=== PATIENT | female | born 2005 | race Caucasian/White ===

== ENCOUNTER 2025-04-01 21:02 | Emergency (ER) | payer OTHER, SELFPAY ==
[2025-04-01 21:07] VITALS: BP 159/91
[2025-04-01 21:52] VITALS: BMI 21.6
[2025-04-01 22:12] LABS: Hematocrit 37.2 % (37.0-47.0); Hemoglobin 12.7 g/dL (12.0-16.0); Mean Corp Hgb Conc. 34.1 g/dL (33.0-37.0); Mean Corpuscular Volume 94.4 fL (81.0-99.0); Nucleated Red Blood Cells % 0 %; Platelet Count 197 10^3/uL (130-400); Red Cell Dist. Width 12.7 % (11.5-14.5)
[2025-04-01 22:35] LABS: ALT (SGPT) < 10 U/L (0-35); AST (SGOT) 15 U/L (14-36); Albumin 5.0 g/dl (3.5-5.0); Alkaline Phosphatase 59 U/L (38-126); Blood Urea Nitrogen 17 mg/dl (7-17); Calcium 9.8 mg/dl (8.4-10.2); Carbon Dioxide 24 mmol/L (22-30); Chloride 106 mmol/L (98-107); Estimated Creatinine Clearance 78 ml/min; Glucose 110 mg/dl (70-99); Potassium 4.3 mmol/L (3.5-5.1); Sodium 139 mmol/L (135-145); Total Protein 7.5 g/dl (6.3-8.2); eGFR > 60.00
--- NOTE | 2025-04-01 23:05 | ED.GENMED ---
History of Present Illness
General
Chief Complaint: Anxiety
Source: patient and family
Exam Limitations: none
Time Seen by Provider: 04/01/25 22:08
Nursing documentation reviewed up to this point in time: agreed with
History of Present Illness
History of Present Illness:
Patient recently diagnosed with depression and started on Lexapro 3 weeks ago, presents to ED secondary to sudden onset of chest palpitations, shortness of breath, nausea, and throat closing sensation, while watching movie this evening with family.
Denies loss of consciousness. However, patient does report feeling lightheaded when her symptoms started. Denies recent illness. Denies recent change in diet. Patient states that she has had similar episodes in the past, including in high school
as well as 2 months ago, but never this severe. There is no family history of depression or anxiety. Patient graduated from college 2 months ago, and is currently looking for work.
Review of Systems
Review of Systems
Allergies reviewed?: Yes
All Other Systems: ROS reviewed and negative except as documented in HPI and ROS
Constitutional: Reports no symptoms
Respiratory: Reports trouble breathing; Denies cough
Cardiac: Reports chest pain and palpitations; Denies diaphoresis or syncope
ABD/GI: Reports no symptoms; Denies vomiting
Musculoskeletal: Reports no symptoms
Skin: Reports no symptoms
Neurological: Reports dizzy; Denies headache
Phy Exam
Physical Exam
Physical Exam:
Physical Exam
General: no apparent distress, not acutely ill. afebrile
Head: nc/at. eomi
Neck: supple. normal range of motion.
Heart: s1/s2 regular rate and rhythm, no murmur.
Lungs: no acute respiratory distress. clear bilaterally
Abdomen: normal bowel sounds. not tender.
Neuro: alert and oriented x 3. no focal neurological deficits
Skin: no rash
Psychiatric: well kept. interactive and cooperative
Extremities: no edema. no calf tenderness.
Course
Orders/Labs/Results
Orders:
Orders
04/01/25 22:06
Complete Blood Count/With Diff Urgent
Comprehensive Metabolic Panel Urgent
HCG, Serum Qualitative Screen Urgent
Comment: ADD ON
Magnesium Urgent
Comment: ADD ON
TSH Urgent
04/01/25 22:54
Add On- LAB Urgent
Tests Added?: magnesium, serum B-HCG, qualitative
04/02/25 00:01
CT Head W/o Iv Contrast Urgent
Reason For Exam: mental status change
Abnormal Lab Results
04/01/25
22:06
RBC 3.94 L 10^6/uL
(4.20-5.40)
MCH 32.2 H pg
(27.0-31.0)
MPV 10.6 H fL
(7.4-10.4)
Lymphocytes % 20.4 L %
(20.5-51.1)
Glucose 110 H mg/dl
(70-99)
04/01/25 22:06
04/01/25 22:06
Vital Signs
Initial and Last Documented VS:
Initial Vital Signs
Temp Pulse Resp BP Pulse Ox
98.0 F 90 16 159/91 99
04/01/25 21:07 04/01/25 21:07 04/01/25 21:07 04/01/25 21:07 04/01/25 21:07
Last Documented Vital Signs
Temp Pulse Resp BP Pulse Ox
98.0 F 74 21 114/71 97
04/01/25 21:07 04/02/25 00:00 04/02/25 00:00 04/02/25 00:00 04/02/25 00:00
MDM/Problems Addressed
MDM/Problems Addressed:
CT head report reviewed and discussed with patient and family. Blood work also within normal limits. Patient otherwise remains afebrile, hemodynamically stable, and nontoxic-appearing during extended course of observation. Patient presentation
today consistent with likely an anxiety/panic attack. As patient appears she is having more frequent episodes, patient will be advised to continue to follow-up with her mainframe programmer as well as already planned evaluation with therapist/counseling.
*Pulse Oximetry
SaO2: 96
Oxygen Mode of Delivery: Room air
Patient hypoxic: no
*Critical Care Note
Total Time (30-74mins, 75-104mins- exclusive of procedures): Not Applicable
ED Attending Note
-
Portions of this chart may have been created with voice recognition software.� Occasional wrong word or��sound alike� substitutions may have occurred due to the inherent limitations of voice recognition software.
Discharge Plan
Departure
Patient Disposition: Home (Routine Discharge)
Date of Disposition: 04/02/25
Time of Disposition: 01:25
Patient with high blood pressure during this ER visit?: Yes
Condition: Good
Discharge Problem:
Panic attack
Instructions: Panic Disorder (DC)
Prescriptions:
No Action
No Current Medications
0
Referrals:
Gunner Chaney III DO [Family Provider, Pediatrics]
Activity Restrictions/Additional Instructions:
As discussed, please continue to follow-up with your mainframe programmer as well as therapist for continual evaluation and treatment.
Interventions
Interventions:
*Risk Screen - Suicide Last Done: 04/01/25 21:52
*General Assessment Last Done: 04/01/25 21:07
*Neglect/Abuse Screening Last Done: 04/01/25 21:52
*ED- Fall Risk Assessment Last Done: 04/01/25 21:07
*ED COVID-19 Vaccine History Last Done: 04/01/25 21:07
*Nursing Disposition Last Done: 04/02/25 01:42
ED-Psychological Assessment Last Done: 04/01/25 21:52
Discharge Date and Time
Discharge Date/Time: 04/02/25 01:42
Print Language: GREEK
[2025-04-01 23:06] VITALS: BP 122/86
[2025-04-01 23:13] LABS: TSH 3.24 uIU/ml (0.47-4.68)
[2025-04-01 23:23] LABS: HCG, Serum Qualitative Screen Negative
[2025-04-01 23:27] LABS: Magnesium 1.9 mg/dl (1.6-2.3)
[2025-04-02] VITALS: BP 114/71
== END 2025-04-02 01:42 | disposition home or self-care (01) ==
LOC: EMR 21:02
PROVIDERS: Emergency Medicine; EMERGENCY PHYSICIAN Emergency Medicine; FAMILY PHYSICIAN Student in an Organized Health Care Education/Training Program
DX: F41.0 Panic disorder [episodic paroxysmal anxiety] (principal); F41.8 Other specified anxiety disorders
CPT/HCPCS: 99284; 70450; 80053; 83735; 84443; 84703; 85025